=== PATIENT | female | born 1950 | race Caucasian/White ===

== ENCOUNTER 2017-04-25 08:08 | Emergency (ER) | payer MEDICARE ==
[~2017-04-25 08:08] MED LIST: ACET500CAP PO; ALLEGRA180 PO; ASAB PO; CARTIA XT240 MG/24 PO; DCN100 PO; FLEX PO; IMDUR30 PO; INDOCIN SR75 MG PO; LIPITOR20 PO; LOTE10 PO; LOZOLTAB PO; MAXIMUM D3 PO; MEVACOR40 MG PO; NITROQUICK0.4 MG SL; NITROSTAT0.4 MG SL; PLAVIX PO; PREV15 PO; VASOTEC10 PO; VITAMIN D PO; VITD PO; Z100 PO; ZOL100 PO; [UNRECOGNIZED DRUG - OTHER] TOP
== END 2017-04-25 08:41 | disposition home or self-care (01) ==
LOC: ER 08:08
DX: J02.9 Acute pharyngitis, unspecified (principal); I10 Essential (primary) hypertension; I25.2 Old myocardial infarction; Z95.5 Presence of coronary angioplasty implant and graft; Z88.2 Allergy status to sulfonamides; Z79.82 Long term (current) use of aspirin; Z79.899 Other long term (current) drug therapy
CPT/HCPCS: 96372; 99283; J0561